=== PATIENT | male | born 1960 | race Caucasian/White ===

== ENCOUNTER 2017-06-24 16:18 | Inpatient (IN) | payer MEDICARE, OTHER ==
[2017-06-24] VITALS (8 sets, daily range): BP systolic 133–161; BP diastolic 69–91
[~2017-06-24] VITALS: Ht 182.8 cm; Wt 122.1 kg
--- NOTE | ~2017-06-24 | PR ---
[place], [place] PROGRESS NOTE NAME: [facility]OST [id number] UNIT #: [id number] ROOM: 517 DOCTOR: AMAN NEUMANN MD BIRTHDATE: [birth year] DOS: 06/29/2017 SUBJECTIVE: The patient was seen in the operating suite just prior to and after his transesophageal echocardiogram today. He is a 57-year-old man who presented to the hospital on 06/24/2017 with dyspnea. He also had substernal burning chest discomfort. At first, it was felt that he had pneumonia, but chest x-ray was consistent with heart failure. He was diuresed. An echocardiogram on 06/25/2017 showed normal left ventricular size with global hypokinesis, estimated ejection fraction of 35-40%, diastole could not be determined, but left ventricular filling pressures were elevated. The mitral valve appeared normal in structure, but had moderate to severe centrally directed mitral insufficiency. Today's echo was done in order to determine the cause of his mitral insufficiency and its significance. The patient denies any dyspnea and is anxious to go home. He denies any current chest pain, palpitations, fevers or chills. PHYSICAL EXAMINATION: VITAL SIGNS: He is a well-nourished, white male, awake, alert and oriented. VITAL SIGNS: Pulse is 77 and regular, blood pressure is 93/43. He is afebrile. NECK: Supple. He has no jugular distention. Carotids are full. LUNGS: Respirations are unlabored. Chest has decreased breath sounds at the bases. HEART: Has a regular rhythm. He has a fourth heart sound, but I did not hear a third heart sound. There were no wheezes or rales. He had no significant murmurs. The PMI was not displaced. There was no precordial heave, lift or thrill. ABDOMEN: Obese, but otherwise benign, without masses, organomegaly or bruits. EXTREMITIES: Showed no edema. Peripheral pulses were palpable in the feet. I reviewed the DAVIN as I was doing it. He did not have any significant valve structural abnormalities. There was no evidence for endocarditis. There was mild tricuspid insufficiency of low velocity consistent with normal right ventricular systolic pressures. There was mild centrally directed mitral insufficiency. No mitral valve prolapse was seen. The ascending and descending thoracic aorta looked normal. IMPRESSION: 1. Newly documented cardiomyopathy. Evaluation thus far shows no evidence for valvular heart disease as a cause. 2. Heart failure, improved with guideline directed medical therapy. 3. Admission with positive blood culture, possibly a contaminant. The patient shows no signs of endocarditis. PLAN: We will proceed with a pharmacologic stress test today. If that looks good, then we will continue guideline directed medical therapy and follow him as an outpatient. At this point, I believe that his mitral insufficiency was functional in origin and improved with medical therapy. This is why today's DAVIN does not show [place], [place] PROGRESS NOTE NAME: IESHA FROST UNIT #: [id number] ROOM: [facility] DOCTOR: AMAN NEUMANN MD BIRTHDATE: [birth year] significant mitral insufficiency. I thank the hospitalist physicians for asking our advice regarding his care. AMAN NEUMANN MD CM:PNTRANS [id number] AMAN NEUMANN MD 06/29/17 1115 interface
[2017-06-24] MEDS ORDERED: LEVOFLOXACIN500 MG PO (16:26)
[2017-06-24] MEDS ORDERED: CARVEDILOL6.25 MG PO (16:26)
[2017-06-24] MEDS ORDERED: HYDROCODONE-AC1 EACH PO (16:27)
[2017-06-24 17:21] LABS: HEMATOCRIT 33.6 % (42.0-52.0); HEMOGLOBIN 10.7 g/dl (14.0-18.0); MEAN CELL VOLUME 89.4 fl (80.0-94.0); MEAN CORPUSCULAR HGB 28.5 pg (27.0-31.0); MEAN CORPUSCULAR HGB CONC 31.8 g/dl (33.0-37.0); PLATELET COUNT AUTOMATED 287 10*3/uL (130-400); RED BLOOD COUNT 3.76 10*6/uL (4.50-5.90); RED CELL DISTRI WIDTH 13.6 % (0-14.5); WHITE BLOOD COUNT 36.8 10*3/uL (4.8-10.8)
[2017-06-24 17:38] LABS: ACT PARTIAL THROMBO TIME 24.3 SECONDS (20.8-31.5); INTERNATIONAL NORM RATIO 0.9 (2.0-3.5)
[2017-06-24 17:44] LABS: BASOPHILS 1 % (0-1); TOTAL CELLS COUNTED 100 #CELLS
[2017-06-24 17:46] LABS: PLATELET SUFFICIENCY NORMAL (NORMAL)
[2017-06-24 17:51] LABS: ALBUMIN 2.9 gm/dl (3.1-4.5); CREATININE 1.76 mg/dL (0.70-1.30); POTASSIUM 4.1 mmol/L (3.5-5.1); TOTAL PROTEIN 6.5 gm/dL (6.4-8.2)
[2017-06-24 17:54] LABS: TROPONIN I 0.17 ng/ml (<0.045)
[2017-06-24] MEDS ORDERED: LANTUS SOL100 UNIT/1 SQ (21:15)
[2017-06-24] MEDS ORDERED: NOVOLOG MI100 UNIT/1 SQ (21:19)
[2017-06-25] VITALS: BP 161/71
[2017-06-25 06:46] LABS: HEMATOCRIT 31.3 % (42.0-52.0); HEMOGLOBIN 9.9 g/dl (14.0-18.0); MEAN CELL VOLUME 89.9 fl (80.0-94.0); MEAN CORPUSCULAR HGB 28.4 pg (27.0-31.0); MEAN CORPUSCULAR HGB CONC 31.6 g/dl (33.0-37.0); MEAN PLATELET VOLUME 10.3 fl (9.6-12.3); PLATELET COUNT AUTOMATED 272 10*3/uL (130-400); RED BLOOD COUNT 3.48 10*6/uL (4.50-5.90); RED CELL DISTRI WIDTH 13.7 % (0-14.5); WHITE BLOOD COUNT 32.1 10*3/uL (4.8-10.8)
[2017-06-25 07:45] LABS: PLATELET SUFFICIENCY NORMAL (NORMAL); POLYCHROMASIA SLIGHT; TOTAL CELLS COUNTED 100 #CELLS
[2017-06-25 07:47] LABS: ALBUMIN 2.7 gm/dl (3.1-4.5); PHOSPHOROUS 3.4 mg/dL (2.5-4.9); THYROID STIM HORMONE (HS) 2.62 uIU/ml (0.358-4.75); TOTAL PROTEIN 5.9 gm/dL (6.4-8.2)
[2017-06-25 08:00] VITALS: BP 140/68
[2017-06-25 08:19] LABS: CREATININE 1.58 mg/dL (0.70-1.30)
[2017-06-25 09:05] LABS: VITAMIN D, 25-HYDROXY 18.2 ng/mL (30-100)
[2017-06-25 12:00] VITALS: BP 139/69
[2017-06-25] MEDS ORDERED: CYMBALTA60 MG PO (15:35)
[2017-06-25] MEDS ORDERED: IRON325 M3 PO (15:36)
[2017-06-25] MEDS ORDERED: TRILEPTAL300 MG PO (15:38)
[2017-06-25 16:00] VITALS: BP 160/79
[2017-06-25] MEDS ORDERED: LIPITOR20 MG PO (16:43)
[2017-06-25] MEDS ORDERED: NEXIUM40 MG PO (16:43)
[2017-06-25 20:00] VITALS: BP 157/76
[2017-06-26] VITALS: BP 139/51
[2017-06-26] MEDS ORDERED: FLONASE ALLERG9.9 ML NAS (06:31)
[2017-06-26 06:42] LABS: HEMATOCRIT 31.9 % (42.0-52.0); HEMOGLOBIN 10.1 g/dl (14.0-18.0); MEAN CELL VOLUME 87.9 fl (80.0-94.0); MEAN CORPUSCULAR HGB 27.8 pg (27.0-31.0); MEAN CORPUSCULAR HGB CONC 31.7 g/dl (33.0-37.0); MEAN PLATELET VOLUME 10.1 fl (9.6-12.3); PLATELET COUNT AUTOMATED 296 10*3/uL (130-400); RED BLOOD COUNT 3.63 10*6/uL (4.50-5.90); RED CELL DISTRI WIDTH 13.3 % (0-14.5); WHITE BLOOD COUNT 33.8 10*3/uL (4.8-10.8)
[2017-06-26 07:09] LABS: CREATININE 1.49 mg/dL (0.70-1.30); POTASSIUM 3.8 mmol/L (3.5-5.1)
[2017-06-26 08:00] VITALS: BP 154/84
[2017-06-26 08:00] LABS: TOTAL CELLS COUNTED 100 #CELLS
[2017-06-26 08:01] LABS: PLATELET SUFFICIENCY NORMAL (NORMAL)
[2017-06-26] MEDS ORDERED: DOXYCYCLINE100 M3 PO (10:44)
[2017-06-26] MEDS ORDERED: PREDNISONE10 MG PO (10:44)
[2017-06-26] MEDS ORDERED: TAMIFLU 75MG CA75 MG PO (10:47)
[2017-06-26 12:00] VITALS: BP 124/62
[2017-06-26 16:00] VITALS: BP 126/73
[2017-06-26 20:00] VITALS: BP 118/50
[2017-06-27] VITALS: BP 118/65
[2017-06-27 07:41] LABS: HEMATOCRIT 27.8 % (42.0-52.0); MEAN CELL VOLUME 87.7 fl (80.0-94.0); MEAN CORPUSCULAR HGB 28.4 pg (27.0-31.0); MEAN CORPUSCULAR HGB CONC 32.4 g/dl (33.0-37.0); MEAN PLATELET VOLUME 10.3 fl (9.6-12.3); PLATELET COUNT AUTOMATED 265 10*3/uL (130-400); RED BLOOD COUNT 3.17 10*6/uL (4.50-5.90); RED CELL DISTRI WIDTH 13.2 % (0-14.5); WHITE BLOOD COUNT 25.6 10*3/uL (4.8-10.8)
[2017-06-27 08:00] VITALS: BP 142/83
[2017-06-27 08:02] LABS: CREATININE 1.61 mg/dL (0.70-1.30); POTASSIUM 3.8 mmol/L (3.5-5.1)
[2017-06-27 08:27] LABS: ATYPICAL LYMPHS 2 % (0-0); PLATELET SUFFICIENCY NORMAL (NORMAL); TOTAL CELLS COUNTED 100 #CELLS
[2017-06-27 12:00] VITALS: BP 142/83
[2017-06-27 16:00] VITALS: BP 132/65
[2017-06-27 19:56] VITALS: BP 159/76
[2017-06-28] VITALS: BP 114/49
[2017-06-28 07:49] LABS: HEMATOCRIT 29.4 % (42.0-52.0); HEMOGLOBIN 9.4 g/dl (14.0-18.0); MEAN CORPUSCULAR HGB 28.1 pg (27.0-31.0); MEAN PLATELET VOLUME 10.2 fl (9.6-12.3); PLATELET COUNT AUTOMATED 307 10*3/uL (130-400); RED BLOOD COUNT 3.34 10*6/uL (4.50-5.90); RED CELL DISTRI WIDTH 13.2 % (0-14.5); WHITE BLOOD COUNT 27.9 10*3/uL (4.8-10.8)
[2017-06-28 07:53] VITALS: BP 118/74
[2017-06-28 08:00] VITALS: BP 150/70
[2017-06-28 08:15] LABS: ALBUMIN 2.4 gm/dl (3.1-4.5); CREATININE 1.73 mg/dL (0.70-1.30); POTASSIUM 3.9 mmol/L (3.5-5.1)
[2017-06-28 08:32] LABS: PLATELET SUFFICIENCY NORMAL (NORMAL); TOTAL CELLS COUNTED 100 #CELLS
[2017-06-28 12:00] VITALS: BP 128/71
[2017-06-28 16:00] VITALS: BP 134/74
[2017-06-28 20:00] VITALS: BP 133/68
[2017-06-29] VITALS (9 sets, daily range): BP systolic 93–152; BP diastolic 43–72
[2017-06-29 06:47] LABS: HEMOGLOBIN 9.3 g/dl (14.0-18.0); MEAN CELL VOLUME 88.4 fl (80.0-94.0); MEAN CORPUSCULAR HGB 28.4 pg (27.0-31.0); MEAN CORPUSCULAR HGB CONC 32.1 g/dl (33.0-37.0); MEAN PLATELET VOLUME 9.9 fl (9.6-12.3); PLATELET COUNT AUTOMATED 310 10*3/uL (130-400); RED BLOOD COUNT 3.28 10*6/uL (4.50-5.90); RED CELL DISTRI WIDTH 13.1 % (0-14.5)
[2017-06-29 06:56] LABS: ALBUMIN 2.5 gm/dl (3.1-4.5); CREATININE 1.83 mg/dL (0.70-1.30); POTASSIUM 3.9 mmol/L (3.5-5.1)
[2017-06-29 07:15] LABS: BASOPHILS 1 % (0-1); PLATELET SUFFICIENCY NORMAL (NORMAL); POLYCHROMASIA SLIGHT; TOTAL CELLS COUNTED 100 #CELLS
[2017-06-29] MEDS ORDERED: ASPIRIN CHEWABL81 M1 PO (17:27)
[2017-06-29] MEDS ORDERED: ALDACTONE25 MG PO (17:27)
[2017-06-29] MEDS ORDERED: CARVEDILOL25 MG PO (17:27)
[2017-06-29] MEDS ORDERED: LEVAQUIN750 M1 PO (17:27)
[2017-06-29] MEDS ORDERED: LISINOPRIL20 MG PO (17:27)
[2017-06-30] VITALS: BP 106/79
== END 2017-06-30 05:59 | disposition short-term general hospital (02) | DRG 871 ==
LOC: ED 16:18 → 5E 19:28 → EDHOLD 19:28 → 5E 20:11
PROVIDERS: Internal Medicine; Internal Medicine Nephrology; Physician Assistant; Student in an Organized Health Care Education/Training Program
PROC: 3E073KZ Introduction of Other Diagnostic Substance into Coronary Artery, Percutaneous Approach (ICD-10-PCS; principal; 2017-06-29)
PROC: 4A02XM4 Measurement of Cardiac Total Activity, External Approach (ICD-10-PCS; principal; 2017-06-29)
DX: A41.9 Sepsis, unspecified organism (principal); J18.9 Pneumonia, unspecified organism; J96.00 Acute respiratory failure, unspecified whether with hypoxia or hypercapnia; I21.19 ST elevation (STEMI) myocardial infarction involving other coronary artery of inferior wall; N17.0 Acute kidney failure with tubular necrosis; E44.0 Moderate protein-calorie malnutrition; C91.10 Chronic lymphocytic leukemia of B-cell type not having achieved remission; E83.41 Hypermagnesemia; I42.9 Cardiomyopathy, unspecified; I13.0 Hypertensive heart and chronic kidney disease with heart failure and stage 1 through stage 4 chronic kidney disease, or unspecified chronic kidney disease; Z66 Do not resuscitate; Z51.5 Encounter for palliative care; E87.8 Other disorders of electrolyte and fluid balance, not elsewhere classified; M79.2 Neuralgia and neuritis, unspecified; K21.9 Gastro-esophageal reflux disease without esophagitis; R65.20 Severe sepsis without septic shock; E11.22 Type 2 diabetes mellitus with diabetic chronic kidney disease; N18.3 Chronic kidney disease, stage 3 (moderate); I50.9 Heart failure, unspecified; I34.1 Nonrheumatic mitral (valve) prolapse; R07.89 Other chest pain; D64.9 Anemia, unspecified; E11.65 Type 2 diabetes mellitus with hyperglycemia; F17.210 Nicotine dependence, cigarettes, uncomplicated; Z88.0 Allergy status to penicillin; Z79.2 Long term (current) use of antibiotics; Z79.899 Other long term (current) drug therapy; Z83.6 Family history of other diseases of the respiratory system; Z81.8 Family history of other mental and behavioral disorders; Z71.6 Tobacco abuse counseling; Z79.4 Long term (current) use of insulin; Z68.36 Body mass index [BMI] 36.0-36.9, adult; Z82.3 Family history of stroke

== ENCOUNTER 2017-08-05 19:21 | Inpatient (IN) | payer MEDICARE, OTHER ==
[~2017-08-05] VITALS: Ht 182.9 cm; Wt 117.7 kg
[~2017-08-05 19:21] MED LIST: ALDACTONE25 MG PO; ASPIRIN CHEWABL81 M1 PO; CARVEDILOL25 MG PO; CARVEDILOL6.25 MG PO; CYMBALTA60 MG PO; DOXYCYCLINE100 M3 PO; FLONASE ALLERG9.9 ML NAS; HYDROCODONE-AC1 EACH PO; IRON325 M3 PO; LANTUS SOL100 UNIT/1 SQ; LEVAQUIN750 M1 PO; LEVOFLOXACIN500 MG PO; LIPITOR20 MG PO; LISINOPRIL20 MG PO; NEXIUM40 MG PO; NOVOLOG MI100 UNIT/1 SQ; PREDNISONE10 MG PO; TAMIFLU 75MG CA75 MG PO; TRILEPTAL300 MG PO
[2017-08-05 19:28] VITALS: BP 123/63
[2017-08-05 20:18] LABS: HEMATOCRIT 25.3 % (42.0-52.0); HEMOGLOBIN 8.3 g/dl (14.0-18.0); MEAN CELL VOLUME 89.4 fl (80.0-94.0); MEAN CORPUSCULAR HGB 29.3 pg (27.0-31.0); MEAN CORPUSCULAR HGB CONC 32.8 g/dl (33.0-37.0); MEAN PLATELET VOLUME 9.8 fl (9.6-12.3); PLATELET COUNT AUTOMATED 234 10*3/uL (130-400); RED BLOOD COUNT 2.83 10*6/uL (4.50-5.90); RED CELL DISTRI WIDTH 14.5 % (0-14.5); WHITE BLOOD COUNT 28.1 10*3/uL (4.8-10.8)
[2017-08-05 20:27] LABS: INTERNATIONAL NORM RATIO 0.9 (2.0-3.5)
[2017-08-05 20:29] VITALS: BP 102/60
[2017-08-05 20:34] LABS: ALBUMIN 3.7 gm/dl (3.1-4.5); ALKALINE PHOSPHATASE 79 U/L (45-117); BUN 53 mg/dl (7-24); CHLORIDE 107 mmol/L (98-107); CREATININE 2.46 mg/dL (0.70-1.30); POTASSIUM 4.8 mmol/L (3.5-5.1); SGOT/AST 10 IU/L (3-35); SGPT/ALT 25 U/L (12-78); SODIUM 139 mmol/L (136-145); TOTAL PROTEIN 6.8 gm/dL (6.4-8.2)
[2017-08-05 20:38] LABS: TROPONIN I < 0.015 ng/ml (<0.045)
[2017-08-05 20:50] LABS: TOTAL CELLS COUNTED 100 #CELLS
[2017-08-05 20:55] LABS: PLATELET SUFFICIENCY NORMAL (NORMAL)
[2017-08-05 21:09] VITALS: BP 104/47
[2017-08-05 22:25] VITALS: BP 97/48
[2017-08-05 23:10] VITALS: BP 121/60
[2017-08-05] MEDS ORDERED: BRILINTA90 M1 PO (23:48)
[2017-08-05] MEDS ORDERED: NORVASC2.5 MG PO (23:53)
[2017-08-05] MEDS ORDERED: LASIX40 MG PO (23:59)
[2017-08-06] MEDS ORDERED: ISOSORBIDE MONO30 MG PO (00:02)
[2017-08-06] MEDS ORDERED: ZESTRIL20 MG PO (00:03)
[2017-08-06] MEDS ORDERED: VITAMIN B121000 MC1 PO (00:06)
[2017-08-06] MEDS ORDERED: VITAMIN C250 M2 PO (00:07)
[2017-08-06 00:08] VITALS: BP 121/60
[2017-08-06] MEDS ORDERED: NITROSTAT0.4 MG SL (00:09)
[2017-08-06 00:37] LABS: BILIRUBIN NEGATIVE (NEGATIVE); BLOOD NEGATIVE (NEGATIVE); CLARITY CLEAR (CLEAR); COLOR YELLOW (YELLOW); GLUCOSE NEGATIVE (NEGATIVE); KETONE NEGATIVE (NEGATIVE); LEUKO ESTERASE NEGATIVE (NEGATIVE); NITRITE NEGATIVE (NEGATIVE); SPECIFIC GRAVITY 1.015 (1.005-1.030); UROBILINOGEN 0.2 E.U./dl (0.2-1.0)
[2017-08-06 00:46] LABS: RBC 0-2 rbc/hpf (0-2); WBC 0-2 wbc/hpf (0-5)
[2017-08-06 02:19] LABS: HEMATOCRIT 23.4 % (42.0-52.0); HEMOGLOBIN 7.7 g/dl (14.0-18.0); MEAN CELL VOLUME 90.3 fl (80.0-94.0); MEAN CORPUSCULAR HGB 29.7 pg (27.0-31.0); MEAN CORPUSCULAR HGB CONC 32.9 g/dl (33.0-37.0); MEAN PLATELET VOLUME 9.7 fl (9.6-12.3); PLATELET COUNT AUTOMATED 205 10*3/uL (130-400); RED BLOOD COUNT 2.59 10*6/uL (4.50-5.90); RED CELL DISTRI WIDTH 14.6 % (0-14.5); WHITE BLOOD COUNT 30.6 10*3/uL (4.8-10.8)
[2017-08-06 02:39] LABS: ALBUMIN 3.4 gm/dl (3.1-4.5); CREATININE 2.77 mg/dL (0.70-1.30); PHOSPHOROUS 6.1 mg/dL (2.5-4.9); POTASSIUM 4.4 mmol/L (3.5-5.1); TOTAL PROTEIN 6.1 gm/dL (6.4-8.2)
[2017-08-06 02:53] LABS: TOTAL CELLS COUNTED 100 #CELLS
[2017-08-06 02:55] LABS: PLATELET SUFFICIENCY NORMAL (NORMAL); POLYCHROMASIA SLIGHT
[2017-08-06 08:00] VITALS: BP 117/58
[2017-08-06 08:25] LABS: VITAMIN D, 25-HYDROXY 14.6 ng/mL (30-100)
[2017-08-06 12:00] VITALS: BP 141/57
[2017-08-06 16:00] VITALS: BP 137/52
[2017-08-06 17:44] LABS: URINE CREATININE RANDOM 78.2 mg/dL
[2017-08-06 20:00] VITALS: BP 143/70
[2017-08-07] VITALS (10 sets, daily range): BP systolic 99–144; BP diastolic 47–76
[2017-08-07 07:24] LABS: HEMATOCRIT 23.7 % (42.0-52.0); HEMOGLOBIN 7.5 g/dl (14.0-18.0); MEAN CELL VOLUME 90.8 fl (80.0-94.0); MEAN CORPUSCULAR HGB 28.7 pg (27.0-31.0); MEAN CORPUSCULAR HGB CONC 31.6 g/dl (33.0-37.0); MEAN PLATELET VOLUME 10.2 fl (9.6-12.3); PLATELET COUNT AUTOMATED 206 10*3/uL (130-400); RED BLOOD COUNT 2.61 10*6/uL (4.50-5.90); RED CELL DISTRI WIDTH 14.4 % (0-14.5); WHITE BLOOD COUNT 24.3 10*3/uL (4.8-10.8)
[2017-08-07 07:46] LABS: PLATELET SUFFICIENCY NORMAL (NORMAL); POLYCHROMASIA SLIGHT; TOTAL CELLS COUNTED 100 #CELLS
[2017-08-07 07:52] LABS: ALBUMIN 3.4 gm/dl (3.1-4.5); CREATININE 1.87 mg/dL (0.70-1.30); PHOSPHOROUS 4.6 mg/dL (2.5-4.9); POTASSIUM 4.3 mmol/L (3.5-5.1)
[2017-08-08 00:15] VITALS: BP 123/52
[2017-08-08 07:11] LABS: HEMATOCRIT 24.7 % (42.0-52.0); HEMOGLOBIN 8.1 g/dl (14.0-18.0); MEAN CELL VOLUME 90.5 fl (80.0-94.0); MEAN CORPUSCULAR HGB 29.7 pg (27.0-31.0); MEAN CORPUSCULAR HGB CONC 32.8 g/dl (33.0-37.0); MEAN PLATELET VOLUME 10.1 fl (9.6-12.3); PLATELET COUNT AUTOMATED 203 10*3/uL (130-400); RED BLOOD COUNT 2.73 10*6/uL (4.50-5.90); RED CELL DISTRI WIDTH 14.4 % (0-14.5); WHITE BLOOD COUNT 27.1 10*3/uL (4.8-10.8)
[2017-08-08 07:31] LABS: BASOPHILS 1 % (0-1); PLATELET SUFFICIENCY NORMAL (NORMAL); TOTAL CELLS COUNTED 100 #CELLS
[2017-08-08 07:45] LABS: ALBUMIN 3.3 gm/dl (3.1-4.5); CREATININE 1.87 mg/dL (0.70-1.30); PHOSPHOROUS 4.5 mg/dL (2.5-4.9); POTASSIUM 4.3 mmol/L (3.5-5.1); TOTAL PROTEIN 6.3 gm/dL (6.4-8.2)
[2017-08-08 08:00] VITALS: BP 142/72
[2017-08-08 12:00] VITALS: BP 133/66
[2017-08-08] MEDS ORDERED: APRESOLINE10 MG PO (12:38)
== END 2017-08-08 13:35 | disposition home or self-care (01) | DRG 682 ==
LOC: ED 19:21 → EDHOLD 22:18 → 4E 22:18
PROVIDERS: Emergency Medicine Emergency Medical Services; Family Medicine; Internal Medicine; Internal Medicine Hospice and Palliative Medicine; Internal Medicine Nephrology
PROC: 30233N1 Transfusion of Nonautologous Red Blood Cells into Peripheral Vein, Percutaneous Approach (ICD-10-PCS; principal; 2017-08-07)
DX: N17.0 Acute kidney failure with tubular necrosis (principal); I50.23 Acute on chronic systolic (congestive) heart failure; I95.9 Hypotension, unspecified; E44.0 Moderate protein-calorie malnutrition; C91.10 Chronic lymphocytic leukemia of B-cell type not having achieved remission; E11.22 Type 2 diabetes mellitus with diabetic chronic kidney disease; E83.41 Hypermagnesemia; I13.0 Hypertensive heart and chronic kidney disease with heart failure and stage 1 through stage 4 chronic kidney disease, or unspecified chronic kidney disease; K92.2 Gastrointestinal hemorrhage, unspecified; E11.65 Type 2 diabetes mellitus with hyperglycemia; D64.9 Anemia, unspecified; F10.21 Alcohol dependence, in remission; E66.09 Other obesity due to excess calories; M79.2 Neuralgia and neuritis, unspecified; N18.9 Chronic kidney disease, unspecified; K21.9 Gastro-esophageal reflux disease without esophagitis; I25.10 Atherosclerotic heart disease of native coronary artery without angina pectoris; Z88.0 Allergy status to penicillin; Z79.82 Long term (current) use of aspirin; Z79.4 Long term (current) use of insulin; Z79.899 Other long term (current) drug therapy; Z86.2 Personal history of diseases of the blood and blood-forming organs and certain disorders involving the immune mechanism; Z87.01 Personal history of pneumonia (recurrent); I25.2 Old myocardial infarction; Z68.34 Body mass index [BMI] 34.0-34.9, adult; Z87.891 Personal history of nicotine dependence; Z83.6 Family history of other diseases of the respiratory system; Z81.8 Family history of other mental and behavioral disorders; Z82.3 Family history of stroke

== ENCOUNTER 2017-08-16 10:56 | Emergency (ER) | payer MEDICARE, OTHER ==
[~2017-08-16] VITALS: Wt 115.7 kg
[~2017-08-16 10:56] MED LIST changes: +APRESOLINE10 MG PO; +BRILINTA90 M1 PO; +ISOSORBIDE MONO30 MG PO; +LASIX40 MG PO; +NITROSTAT0.4 MG SL; +NORVASC2.5 MG PO; +VITAMIN B121000 MC1 PO; +VITAMIN C250 M2 PO; +ZESTRIL20 MG PO
[2017-08-16 11:40] LABS: HEMATOCRIT 26.9 % (42.0-52.0); HEMOGLOBIN 8.7 g/dl (14.0-18.0); MEAN CELL VOLUME 93.1 fl (80.0-94.0); MEAN CORPUSCULAR HGB 30.1 pg (27.0-31.0); MEAN CORPUSCULAR HGB CONC 32.3 g/dl (33.0-37.0); MEAN PLATELET VOLUME 9.5 fl (9.6-12.3); PLATELET COUNT AUTOMATED 257 10*3/uL (130-400); RED BLOOD COUNT 2.89 10*6/uL (4.50-5.90); RED CELL DISTRI WIDTH 14.4 % (0-14.5); WHITE BLOOD COUNT 29.9 10*3/uL (4.8-10.8)
[2017-08-16] MEDS ORDERED: PLAVIX75 M1 PO (11:44)
[2017-08-16 11:49] LABS: ACT PARTIAL THROMBO TIME 23.2 SECONDS (20.8-31.5); INTERNATIONAL NORM RATIO 0.9 (2.0-3.5)
[2017-08-16 11:56] LABS: ALBUMIN 3.5 gm/dl (3.1-4.5); CREATININE 1.66 mg/dL (0.70-1.30); POTASSIUM 4.4 mmol/L (3.5-5.1); TOTAL PROTEIN 6.3 gm/dL (6.4-8.2)
[2017-08-16 11:58] LABS: BASOPHILS 1 % (0-1); TOTAL CELLS COUNTED 100 #CELLS
[2017-08-16 11:59] LABS: PLATELET SUFFICIENCY NORMAL (NORMAL)
[2017-08-16] MEDS ORDERED: MIRALAX17 GM PO (12:51)
== END 2017-08-16 14:00 | disposition home or self-care (01) ==
LOC: ED 10:56
PROVIDERS: Emergency Medicine
DX: K62.5 Hemorrhage of anus and rectum (principal); K59.00 Constipation, unspecified; I25.10 Atherosclerotic heart disease of native coronary artery without angina pectoris; K21.9 Gastro-esophageal reflux disease without esophagitis; I25.2 Old myocardial infarction; E66.9 Obesity, unspecified; E11.65 Type 2 diabetes mellitus with hyperglycemia; I11.0 Hypertensive heart disease with heart failure; I50.9 Heart failure, unspecified; F17.210 Nicotine dependence, cigarettes, uncomplicated; Z79.899 Other long term (current) drug therapy; Z88.0 Allergy status to penicillin; Z79.82 Long term (current) use of aspirin; Z79.4 Long term (current) use of insulin; Z95.5 Presence of coronary angioplasty implant and graft

== ENCOUNTER → 2017-08-17 | Outpatient (CLI) | payer MEDICARE, OTHER ==
[~2017-08-17] MED LIST changes: +MIRALAX17 GM PO; +PLAVIX75 M1 PO
[2017-08-17 10:15] LABS: HEMATOCRIT 26.6 % (42.0-52.0); HEMOGLOBIN 8.3 g/dl (14.0-18.0); MEAN CORPUSCULAR HGB CONC 31.2 g/dl (33.0-37.0); MEAN PLATELET VOLUME 9.5 fl (9.6-12.3); PLATELET COUNT AUTOMATED 253 10*3/uL (130-400); RED BLOOD COUNT 2.86 10*6/uL (4.50-5.90); RED CELL DISTRI WIDTH 14.4 % (0-14.5); WHITE BLOOD COUNT 30.9 10*3/uL (4.8-10.8)
[2017-08-17 10:40] LABS: TOTAL CELLS COUNTED 100 #CELLS
[2017-08-17 10:41] LABS: PLATELET SUFFICIENCY NORMAL (NORMAL); POLYCHROMASIA SLIGHT
[2017-08-17 10:46] LABS: CREATININE 1.72 mg/dL (0.70-1.30); POTASSIUM 4.4 mmol/L (3.5-5.1)
== END | disposition home or self-care (01) ==
LOC: LAB 09:58
PROVIDERS: Internal Medicine
DX: K92.2 Gastrointestinal hemorrhage, unspecified (principal); N17.0 Acute kidney failure with tubular necrosis

== ENCOUNTER → 2017-11-04 | Outpatient (CLI) | payer MEDICARE, OTHER ==
[2017-11-04 11:22] LABS: CREATININE 1.75 mg/dL (0.70-1.30); POTASSIUM 4.1 mmol/L (3.5-5.1)
== END | disposition home or self-care (01) ==
LOC: LAB 09:55
PROVIDERS: Internal Medicine Cardiovascular Disease
DX: I50.22 Chronic systolic (congestive) heart failure (principal)

== ENCOUNTER → 2017-12-08 | Outpatient (CLI) | payer OTHER ==
[2017-12-08 11:16] LABS: ALBUMIN 3.3 gm/dl (3.1-4.5); CREATININE 1.87 mg/dL (0.70-1.30); POTASSIUM 4.7 mmol/L (3.5-5.1); TOTAL PROTEIN 6.2 gm/dL (6.4-8.2)
== END | disposition home or self-care (01) ==
LOC: LAB 09:52
PROVIDERS: Internal Medicine Cardiovascular Disease
DX: I13.0 Hypertensive heart and chronic kidney disease with heart failure and stage 1 through stage 4 chronic kidney disease, or unspecified chronic kidney disease (principal); N18.3 Chronic kidney disease, stage 3 (moderate); I50.23 Acute on chronic systolic (congestive) heart failure; I25.5 Ischemic cardiomyopathy; E78.2 Mixed hyperlipidemia

== ENCOUNTER → 2018-01-15 | Outpatient (CLI) | payer OTHER ==
[2018-01-15 10:02] LABS: BILIRUBIN NEGATIVE (NEGATIVE); BLOOD TRACE-LYSED (NEGATIVE); CLARITY CLEAR (CLEAR); COLOR YELLOW (YELLOW); GLUCOSE 1+ (NEGATIVE); KETONE NEGATIVE (NEGATIVE); LEUKO ESTERASE NEGATIVE (NEGATIVE); NITRITE NEGATIVE (NEGATIVE); UROBILINOGEN 0.2 E.U./dl (0.2-1.0)
[2018-01-15 10:12] LABS: HEMATOCRIT 32.9 % (42.0-52.0); HEMOGLOBIN 10.7 g/dl (14.0-18.0); MEAN CELL VOLUME 91.4 fl (80.0-94.0); MEAN CORPUSCULAR HGB 29.7 pg (27.0-31.0); MEAN CORPUSCULAR HGB CONC 32.5 g/dl (33.0-37.0); PLATELET COUNT AUTOMATED 253 10*3/uL (130-400); URINE CREATININE RANDOM 75.1 mg/dL
[2018-01-15 10:27] LABS: ALBUMIN 3.2 gm/dl (3.1-4.5); CREATININE 1.96 mg/dL (0.70-1.30); PHOSPHOROUS 3.5 mg/dL (2.5-4.9); POTASSIUM 4.8 mmol/L (3.5-5.1)
[2018-01-15 10:51] LABS: RBC 0-2 rbc/hpf (0-2)
[2018-01-15 11:13] LABS: PTH INTACT 70.5 pg/mL (18.5-88.0); VITAMIN D, 25-HYDROXY 11.1 ng/mL (30-100)
[2018-01-15 11:39] LABS: BASOPHILS 1 % (0-1); PLATELET SUFFICIENCY NORMAL (NORMAL); POLYCHROMASIA SLIGHT; TOTAL CELLS COUNTED 100 #CELLS
== END | disposition home or self-care (01) ==
LOC: LAB 09:41
PROVIDERS: Internal Medicine Nephrology
DX: D63.1 Anemia in chronic kidney disease (principal); E11.22 Type 2 diabetes mellitus with diabetic chronic kidney disease; N18.3 Chronic kidney disease, stage 3 (moderate); E11.319 Type 2 diabetes mellitus with unspecified diabetic retinopathy without macular edema; N25.81 Secondary hyperparathyroidism of renal origin

== ENCOUNTER → 2018-09-08 | Outpatient (CLI) | payer OTHER | END | disposition home or self-care (01) | LOC: RESCLI 00:17 | DX: E11.69 Type 2 diabetes mellitus with other specified complication (principal); Z79.4 Long term (current) use of insulin; K21.9 Gastro-esophageal reflux disease without esophagitis; I25.10 Atherosclerotic heart disease of native coronary artery without angina pectoris; I50.9 Heart failure, unspecified; J30.2 Other seasonal allergic rhinitis; I10 Essential (primary) hypertension; E78.5 Hyperlipidemia, unspecified; F32.89 Other specified depressive episodes; G89.29 Other chronic pain; E61.1 Iron deficiency; Z71.6 Tobacco abuse counseling; Z72.0 Tobacco use ==

== ENCOUNTER → 2018-12-13 | Outpatient (CLI) | payer OTHER ==
[2018-12-13 09:44] LABS: BILIRUBIN NEGATIVE (NEGATIVE); BLOOD 1+ (NEGATIVE); CLARITY CLEAR (CLEAR); COLOR YELLOW (YELLOW); GLUCOSE 1+ (NEGATIVE); KETONE NEGATIVE (NEGATIVE); LEUKO ESTERASE NEGATIVE (NEGATIVE); NITRITE NEGATIVE (NEGATIVE); SPECIFIC GRAVITY 1.025 (1.005-1.030); UROBILINOGEN 0.2 E.U./dl (0.2-1.0)
[2018-12-13 10:11] LABS: HEMATOCRIT 30.3 % (42.0-52.0); HEMOGLOBIN 9.8 g/dl (14.0-18.0); MEAN CORPUSCULAR HGB 29.4 pg (27.0-31.0); MEAN CORPUSCULAR HGB CONC 32.3 g/dl (33.0-37.0); MEAN PLATELET VOLUME 10.2 fl (9.6-12.3); PLATELET COUNT AUTOMATED 274 10*3/uL (130-400); RED BLOOD COUNT 3.33 10*6/uL (4.50-5.90); RED CELL DISTRI WIDTH 13.7 % (0-14.5); WHITE BLOOD COUNT 25.7 10*3/uL (4.8-10.8)
[2018-12-13 10:37] LABS: POTASSIUM 4.5 mmol/L (3.5-5.1)
[2018-12-13 10:38] LABS: MUCOUS 1+
[2018-12-13 10:40] LABS: ATYPICAL LYMPHS 1 % (0-0); TOTAL CELLS COUNTED 100 #CELLS
[2018-12-13 10:41] LABS: PLATELET SUFFICIENCY NORMAL (NORMAL); ROULEAUX SLIGHT
[2018-12-13 10:42] LABS: POLYCHROMASIA SLIGHT
[2018-12-13 11:09] LABS: ALBUMIN 3.4 gm/dl (3.1-4.5); CREATININE 2.13 mg/dL (0.70-1.30); PHOSPHOROUS 3.8 mg/dL (2.5-4.9)
[2018-12-13 12:20] LABS: FERRITIN 109.4 ng/mL (22.0-322.0); VITAMIN D, 25-HYDROXY 8.4 ng/mL (30-100)
[2018-12-13 12:21] LABS: PTH INTACT 79.9 pg/mL (18.5-88.0)
== END | disposition home or self-care (01) ==
LOC: LAB 08:55
PROVIDERS: Internal Medicine Nephrology
DX: I12.9 Hypertensive chronic kidney disease with stage 1 through stage 4 chronic kidney disease, or unspecified chronic kidney disease (principal); E11.22 Type 2 diabetes mellitus with diabetic chronic kidney disease; N18.3 Chronic kidney disease, stage 3 (moderate); C91.10 Chronic lymphocytic leukemia of B-cell type not having achieved remission; D63.1 Anemia in chronic kidney disease; N25.81 Secondary hyperparathyroidism of renal origin; E11.319 Type 2 diabetes mellitus with unspecified diabetic retinopathy without macular edema; Z79.899 Other long term (current) drug therapy

== ENCOUNTER → 2018-12-22 | Outpatient (CLI) | payer OTHER | END | disposition home or self-care (01) | LOC: RESCLI 02:18 | DX: E11.9 Type 2 diabetes mellitus without complications (principal); F32.89 Other specified depressive episodes; K21.9 Gastro-esophageal reflux disease without esophagitis; I11.0 Hypertensive heart disease with heart failure; I50.9 Heart failure, unspecified; E78.5 Hyperlipidemia, unspecified; E53.8 Deficiency of other specified B group vitamins; E61.1 Iron deficiency; H65.91 Unspecified nonsuppurative otitis media, right ear; J02.9 Acute pharyngitis, unspecified; G89.29 Other chronic pain; Z95.5 Presence of coronary angioplasty implant and graft; Z79.899 Other long term (current) drug therapy; Z88.0 Allergy status to penicillin ==

== ENCOUNTER → 2019-01-13 | Outpatient (CLI) | payer OTHER | END | disposition home or self-care (01) | LOC: RESCLI 00:38 | DX: K21.9 Gastro-esophageal reflux disease without esophagitis (principal); F32.89 Other specified depressive episodes; E11.9 Type 2 diabetes mellitus without complications; E61.1 Iron deficiency; E53.8 Deficiency of other specified B group vitamins; I11.0 Hypertensive heart disease with heart failure; I50.9 Heart failure, unspecified; E78.5 Hyperlipidemia, unspecified; J30.2 Other seasonal allergic rhinitis; I25.10 Atherosclerotic heart disease of native coronary artery without angina pectoris; G89.29 Other chronic pain; M54.5 Low back pain; C91.10 Chronic lymphocytic leukemia of B-cell type not having achieved remission; F17.200 Nicotine dependence, unspecified, uncomplicated; Z95.5 Presence of coronary angioplasty implant and graft; Z79.899 Other long term (current) drug therapy; Z88.0 Allergy status to penicillin ==

== ENCOUNTER → 2019-02-01 | Outpatient (CLI) | payer OTHER | END | disposition home or self-care (01) | LOC: CT 12:33 | DX: J43.9 Emphysema, unspecified (principal); M51.34 Other intervertebral disc degeneration, thoracic region; Z85.6 Personal history of leukemia ==

== ENCOUNTER → 2019-04-05 | Outpatient (CLI) | payer MEDICARE | END | disposition home or self-care (01) | LOC: RESCLI 01:13 | DX: I13.0 Hypertensive heart and chronic kidney disease with heart failure and stage 1 through stage 4 chronic kidney disease, or unspecified chronic kidney disease (principal); I50.9 Heart failure, unspecified; N18.3 Chronic kidney disease, stage 3 (moderate); E61.1 Iron deficiency; E53.8 Deficiency of other specified B group vitamins; E78.5 Hyperlipidemia, unspecified; J30.2 Other seasonal allergic rhinitis; I25.10 Atherosclerotic heart disease of native coronary artery without angina pectoris; G89.29 Other chronic pain; M54.5 Low back pain; F17.200 Nicotine dependence, unspecified, uncomplicated; C91.10 Chronic lymphocytic leukemia of B-cell type not having achieved remission; Z95.5 Presence of coronary angioplasty implant and graft; Z98.890 Other specified postprocedural states; Z79.899 Other long term (current) drug therapy; Z88.0 Allergy status to penicillin ==

== ENCOUNTER 2019-05-16 10:27 | Emergency (ER) | payer MEDICARE ==
[2019-05-16] VITALS (8 sets, daily range): BP systolic 102–133; BP diastolic 52–81
[2019-05-16 11:34] LABS: ACT PARTIAL THROMBO TIME 26.3 SECONDS (20.0-32.1); INTERNATIONAL NORM RATIO 0.9 (2.0-3.5)
[2019-05-16 11:41] LABS: ALBUMIN 3.1 gm/dl (3.1-4.5); CREATININE 3.33 mg/dL (0.70-1.30); POTASSIUM 4.8 mmol/L (3.5-5.1)
[2019-05-16 11:47] LABS: MEAN CELL VOLUME 92.9 fl (80.0-94.0); MEAN CORPUSCULAR HGB 28.1 pg (27.0-31.0); MEAN CORPUSCULAR HGB CONC 30.3 g/dl (33.0-37.0); MEAN PLATELET VOLUME 9.8 fl (9.6-12.3); PLATELET COUNT AUTOMATED 366 10*3/uL (130-400); RED BLOOD COUNT 2.24 10*6/uL (4.50-5.90); RED CELL DISTRI WIDTH 15.2 % (0-14.5); WHITE BLOOD COUNT 25.7 10*3/uL (4.8-10.8)
[2019-05-16 11:49] LABS: HEMATOCRIT 20.8 % (42.0-52.0); HEMOGLOBIN 6.3 g/dl (14.0-18.0)
[2019-05-16 11:53] LABS: TROPONIN I 2.33 ng/ml (<0.045)
[2019-05-16 12:06] LABS: ATYPICAL LYMPHS 3 % (0-0); OVALOCYTES FEW; PLATELET SUFFICIENCY NORMAL (NORMAL); POLYCHROMASIA SLIGHT; TOTAL CELLS COUNTED 100 #CELLS
[2019-05-16 12:07] LABS: SCHISTOCYTES FEW
[2019-05-16 12:55] LABS: URINE AMPHETAMINES < 1000 (1000ng/ml); URINE BARBITURATES < 200 (200ng/ml); URINE BENZODIAZEPINES < 200 (200ng/ml); URINE CANNABINOIDS (THC) < 50 (50ng/ml); URINE COCAINE < 300 (300ng/ml); URINE METHADONE < 300 (300ng/ml); URINE OPIATES > 300 (300ng/ml); URINE PHENCYCLIDINE < 25 (25ng/ml)
[2019-05-16 13:02] LABS: BILIRUBIN NEGATIVE (NEGATIVE); BLOOD NEGATIVE (NEGATIVE); CLARITY CLEAR (CLEAR); COLOR YELLOW (YELLOW); GLUCOSE NEGATIVE (NEGATIVE); KETONE NEGATIVE (NEGATIVE); LEUKO ESTERASE NEGATIVE (NEGATIVE); NITRITE NEGATIVE (NEGATIVE); UROBILINOGEN 0.2 E.U./dl (0.2-1.0)
[2019-05-16 13:03] LABS: BACTERIA TRACE
[2019-05-16 13:28] LABS: ARTERIAL BLOOD GAS PH 7.406 (7.35-7.45)
[2019-05-16 13:31] LABS: ABG BASE EXCESS -7.6 mmol/L (-2.0-2.0)
== END 2019-05-16 14:38 | disposition expired ==
LOC: ED 10:27
PROVIDERS: Emergency Medicine
DX: I46.9 Cardiac arrest, cause unspecified (principal); I13.0 Hypertensive heart and chronic kidney disease with heart failure and stage 1 through stage 4 chronic kidney disease, or unspecified chronic kidney disease; E11.22 Type 2 diabetes mellitus with diabetic chronic kidney disease; I50.9 Heart failure, unspecified; N18.4 Chronic kidney disease, stage 4 (severe); I21.4 Non-ST elevation (NSTEMI) myocardial infarction; I25.10 Atherosclerotic heart disease of native coronary artery without angina pectoris; K21.9 Gastro-esophageal reflux disease without esophagitis; F17.200 Nicotine dependence, unspecified, uncomplicated; Z88.8 Allergy status to other drugs, medicaments and biological substances; Z79.82 Long term (current) use of aspirin; Z79.899 Other long term (current) drug therapy; Z88.0 Allergy status to penicillin; Z79.4 Long term (current) use of insulin